=== PATIENT | female | born 1945 ===

== ENCOUNTER 2018-12-04 13:45 | Inpatient (IN) | payer OTHER ==
[~2018-12-04] VITALS: Ht 152.4 cm; Wt 57.2 kg
[2018-12-04] MEDS ORDERED: COZAAR25 MG PO (15:36)
[2018-12-04] MEDS ORDERED: GLIMEPIRIDE1 MG PO (15:36)
[2018-12-04] MEDS ORDERED: NORVASC10 MG PO (15:36)
[2018-12-04] MEDS ORDERED: SINGULAIR10 MG PO (15:37)
[2018-12-04] MEDS ORDERED: LOZOL PO (15:37)
[2018-12-04] MEDS ORDERED: PROAIR RESPICL90 MCG IH (15:38)
[2018-12-04] MEDS ORDERED: HORIZANT300 MG PO (15:38)
[2018-12-04] MEDS ORDERED: TOPROL XL50 MG PO (15:38)
[2018-12-04] MEDS ORDERED: ZOCOR20 MG PO (15:39)
[2018-12-04] MEDS ORDERED: PEPCID20 MG PO (15:39)
[2018-12-04] MEDS ORDERED: VITAMIN D310000 UNIT PO (15:39)
[2018-12-04] MEDS ORDERED: ASPIR 8181 MG PO (15:39)
== END 2018-12-11 14:00 | DRG 470 ==
LOC: SURG 13:45 → O/R 12-08 06:00 → SURG 12-08 09:45
PROVIDERS: ADMIT Orthopaedic Surgery
PROC: 0SRC0J9 Replacement of Right Knee Joint with Synthetic Substitute, Cemented, Open Approach (ICD-10-PCS; principal; 2018-12-08 09:45)
DX: M17.11 Unilateral primary osteoarthritis, right knee (principal); E11.9 Type 2 diabetes mellitus without complications; I10 Essential (primary) hypertension